=== PATIENT | male | born 2005 | race Caucasian/White ===

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

== ENCOUNTER 2024-08-06 06:26 | Emergency (ER) | payer OTHER, SELFPAY ==
--- NOTE | ~2024-08-06 | XR_ITS ---
EXAMINATION: XR CHEST CLINICAL INFORMATION: Shortness of breath, cough, on breathing treatment COMPARISON: April 11, 2019 TECHNIQUE: 3 views of the chest. FINDINGS: There is no gross pneumothorax. Heart size is normal. No pleural effusion. No focal consolidation. XR/XR chest 2V IMPRESSION: No focal consolidation to suggest pneumonia. This study was presented today 08/06/2024 for interpretation. Stat results provided at this time as requested by referring provider. Electronically signed by: Luz Elena Aparicio MD 08/06/2024 09:50 AM EDT
[2024-08-06 06:34] VITALS: BP 144/83; PULSE 83; RESP 18; TEMP 36.7; O2SAT 95; BMI 33.5
--- NOTE | 2024-08-06 06:55 | ED_ITS ---
HPI - URI/Sore Throat General Chief Complaint: Upper Respiratory Symptoms Stated Complaint: Asthma Time Seen by Provider: 08/06/24 06:31 Source: patient and RN notes reviewed Mode of arrival: ambulatory Limitations: no limitations History of Present Illness ED Provider: Sweetie Kerr PA-C [facility] Narrative: This is a 18-year-old male, with a history of asthma, who presents emergency department complaints of headache, congestion, sore throat, wheezing, and dry cough since yesterday evening. Patient states that his symptoms started suddenly. He has a history of asthma and has been awaiting to have his albuterol inhaler refilled. He states that he took Tylenol as well as cold and flu medication [id number] which provided him with minimal relief. Filling number was sick last week. Denies any fevers, chills, chest pain, palpitations, abdominal pain, nausea, vomiting or diarrhea. No urinary symptoms. No other complaints or concerns at this time. MD elicited complaint: cough, sore throat and nasal congestion Pertinent past history: asthma Onset (ago): day(s) Consistency: constant Severity: moderate Able to tolerate fluids by mouth: Yes Exacerbating factors: nothing Relieving factors: nothing Context: sick contacts Associated symptoms: headache, nasal congestion, sore throat, cough and shortness of breath Treatments prior to arrival: none Related Data Previous Rx's ?Medication ?Instructions ?Recorded doxycycline hyclate 100 mg capsule 100 mg PO BID 10 days #20 caps 10/11/21 albuterol sulfate 90 mcg/actuation 2 inh inhalation Q6H PRN shortness 08/06/24 aerosol inhaler of breath or wheezing 30 days #8.5 grams prednisone 20 mg tablet 40 mg (2 x 20 mg) PO DAILY 4 days 08/06/24 #8 tabs Allergies Allergy/AdvReac Type Severity Reaction Status Date / Time No Known Allergies Allergy Verified 08/06/24 06:35 Review of Systems Review of Systems: Yes all other systems are reviewed and are negative Constitutional: Constitutional: Reports as per [facility] Past Medical History Medical History (Updated 08/06/24 @ 09:58 by KORI Baker) Asthma No known health problems Social History Social History Advance Directives: No Advance Directives Information Provided: Yes Physical Exam Vital Signs: Vital Signs: Last Vital Signs Temp 98.0 F 08/06/24 06:34 Pulse 81 09/17/24 07:38 Resp 18 08/06/24 07:38 BP 135/74 08/06/24 07:38 Pulse Ox 100 08/06/24 07:38 O2 Del Method Room Air 08/06/24 07:38 BMI result Body Mass Index 33.5 Const: General: cooperative, comfortable and no acute distress [place] entation/consciousness: patient oriented x3 Limitations: no limitations HEENT: Head: Yes normal to inspection, Yes normocephalic and Yes atraumatic Ears: hearing grossly normal bilaterally General nose exam: Normal external nose present Face and sinus: Yes normal facial exam Mouth: Normal oral and palatal mucosa present, oropharynx normal and moist mucous membranes Throat: Yes posterior oropharynx normal Eyes: General: appearance normal, both eyes and all related structures Eyelids: Yes eyelids normal Conjunctivae: conjunctivae normal Sclerae: sclerae normal Pupils: Equal, round and reactive pupils present EOM: EOMs intact bilaterally Neck: Neck: Yes normal visual inspection, Yes full ROM and Yes no lymphadenopathy Lymphatic: no lymphadenopathy noted Chest: Chest palpation & inspection: normal inspection of the chest Resp: Effort & Inspection: normal respiratory effort and able to speak in complete sentences Auscultation: clear to auscultation bilaterally, no crackles, no rales, no rhonchi and no wheezes Cardio: Rate: regular rate Rhythm: regular rhythm Heart sounds: S1 normal heart sound present and S2 normal heart sound present GI: Inspection: Yes normal to inspection Skin: General skin exam: no rashes or lesions noted Trauma: no lacerations or abrasions Wounds: no wounds Neuro: General: patient oriented x3 and moves all extremities Cranial nerves: Yes Equal, round and reactive pupils present Extrem: General: Yes normal to inspection Right upper extremity: normal to inspection Left upper extremity: normal to inspection Right lower extremity: normal to inspection Left lower extremity: normal to inspection Course Reevaluation(s) Reevaluation #1: Patient re-evaluated, lungs clear to auscultation bilaterally after receiving updraft. Chest x-ray still pending at this time. Will continue to closely monitor. Patient tested negative for COVID, flu RSV. Time: 08:09 Reevaluation #2: Chest x-ray unremarkable. Patient feeling much better after receiving updraft, lungs remain to be clear to auscultation. Attempted to send over inhaler however prompting me to initiate a prior authorization therefore patient given inhaler in department with spacer. Discharged on prednisone, given strict return precautions. Patient understands agrees with plan. Patient stable for discharge. Time: 10:05 Medications Administered Discontinued Medications Generic Name Dose Route Start Last Admin Trade Name Zander PRN Reason Stop Dose Admin Albuterol Sulfate 2.5 mg/ 0 mg 08/06/24 07:17 08/06/24 07:21 Albuterol/Ipratropium 3 ml INHALE 08/06/24 07:18 5 dose ONCE ONE Administration Prednisone 40 mg 08/06/24 06:54 08/06/24 07:35 Prednisone 20 Mg Tablet PO 08/06/24 06:55 40 mg ONCE ONE Administration Medical Decision Making Medical Decision Making [facility] Narrative: This is a 18-year-old male, with a history of asthma, who presents emergency department with complaints of congestion, headache, cough, sore throat since yesterday. On arrival, blood pressure mildly elevated at 140 4/83, all other vital signs within normal limits. He is speaking in full sentences under no acute distress. Lungs with inspiratory and expiratory wheezes noted throughout all lung ferrer. Sounds nasally congested. Differential diagnoses include flu, RSV, COVID, asthma exacerbation, pneumonia. Plan: Viral swabs, prednisone, chest x-ray, ED bronch protocol, prednisone 40mg Differential Diagnosis Differential Diagnoses: The differential diagnosis associated with the presentation includes See above Lab Data [facility] Lab Attestation statement: I reviewed the patient's lab results. Negative COVID, flu, RSV and strep Labs: Lab Results 08/06/24 08/06/24 Range/Units 06:42 09:01 Influenza Type A (PCR) NEGATIVE (Negative) Influenza Type B (PCR) NEGATIVE (Negative) RSV RNA Qual (PCR) NEGATIVE (Negative) SARS-CoV-2 RNA (RT-PCR) NEGATIVE (Negative) S. pyogenes GrpA MARIEL Negative (Negative) Radiology Impression Discussion of test interpretation with radiology: I have reviewed the radiologist's reading. Radiologist Impression: XR/XR chest 2V IMPRESSION: No focal consolidation to suggest pneumonia. This study was presented today 08/06/2024 for interpretation. Stat results provided at this time as requested by referring provider. Electronically signed by: Luz Elena Aparicio MD 08/06/2024 09:50 AM EDT RP Dictated By: Luz Elena Aparicio MD Discharge Plan Discharge Clinical Impression: Upper respiratory infection Patient Disposition: Home, Self-Care Instructions: Upper Respiratory Infection (ED) Additional Instructions: You were seen in the emergency department due to congestion, headache, sore throat. You tested negative for COVID, flu, RSV and strep throat today. Your chest x-ray was normal today. You likely have a virus that is triggering your asthma. Please continue using albuterol inhaler at home as directed as needed for shortness for breath/wheezing Please take prednisone as prescribed, start this tomorrow as you already received a dose today. Follow-up with your primary care physician, call to make an appointment. If any new or worsening symptoms occur including but not limited to worsening shortness of breath, chest pain, fevers not responding to ibuprofen and or Tylenol, please return for re-evaluation. Prescriptions: New prednisone 20 mg tablet 40 mg PO DAILY 4 Days Qty: 8 0RF Rx Instructions: start 08/07 albuterol sulfate 90 mcg/actuation HFA aerosol inhaler 2 inh inhalation Q6H PRN (Reason: shortness of breath or wheezing) 30 Days Qty: 8.5 0RF No Action doxycycline hyclate 100 mg capsule 100 mg PO BID 10 Days Qty: 20 0RF Stand Alone Forms: Work/School Release Print Language: Omani
[2024-08-06] MEDS: Albuterol Sulfate 2.5 MG, Albuterol/Iprat 2.5/0.5MG 3 ML 3 ML INHALE (07:21)
[2024-08-06 07:23] LABS: Influenza A PCR NEGATIVE (Negative); Influenza B PCR NEGATIVE (Negative); Resp Syncy Virus RNA Qual PCR NEGATIVE (Negative); SARS COV2 PCR INHOUSE NEGATIVE (Negative)
[2024-08-06 07:25] VITALS: PULSE 79; RESP 19; O2SAT 97
[2024-08-06] MEDS: predniSONE 20 MG TABLET 40 MG PO (07:35)
[2024-08-06 07:38] VITALS: BP 135/74; PULSE 81; RESP 18; O2SAT 100
[2024-08-06 09:36] LABS: IDNOW Serial# 08D9AD1C; Strep A Nucleic Acid Negative (Negative)
[2024-08-06] MEDS: Albuterol Sulfate 90 MCG 8 GM INHALER 2 PUFF INHALE (10:16)
[2024-08-06 10:19] VITALS: BP 135/74; PULSE 81; RESP 18; TEMP 36.9; O2SAT 100
== END 2024-08-06 10:21 | disposition home or self-care (01) ==
PROVIDERS: Physician Assistant Medical; Emergency Provider Emergency Medicine
DX: J06.9 Acute upper respiratory infection, unspecified (principal); R06.02 Shortness of breath; R05.9 Cough, unspecified; Z03.818 Encounter for observation for suspected exposure to other biological agents ruled out
CPT/HCPCS: 0241U; 71046; 87651; 94640; 99284